=== PATIENT | female | born 1995 | race Caucasian/White ===

== ENCOUNTER 2023-06-02 13:50 | Emergency (ER) | payer SELFPAY ==
[~2023-06-02] VITALS: Ht 165.1 cm; Wt 60.0 kg
[2023-06-02 13:52] VITALS: O2SAT 98
[2023-06-02] MEDS ORDERED: HYDROCODONE/ACETAMINOPHEN 5/325MG TABLET PO ONE (17:00)
[2023-06-02] MEDS ORDERED: HYDROCODONE/ACETAMINOPHEN 5/325MG TABLET PO NR (18:45)
[2023-06-02] MEDS ORDERED: IBUP-2029 MT (19:02)
[2023-06-02 19:43] VITALS: BP 118/77; PULSE 68; RESP 16; TEMP 97.5
== END 2023-06-02 19:46 | disposition home or self-care (01) ==
LOC: ER 13:50
DX: S30.0XXA Contusion of lower back and pelvis, initial encounter (principal); S70.02XA Contusion of left hip, initial encounter; S70.01XA Contusion of right hip, initial encounter; W18.39XA Other fall on same level, initial encounter; M54.6 Pain in thoracic spine; Z98.890 Other specified postprocedural states; Y93.89 Activity, other specified; Y92.89 Other specified places as the place of occurrence of the external cause; Y99.8 Other external cause status
CPT/HCPCS: 71045; 72070; 72100; 73522; 73590; 99284